=== PATIENT | female | born 2000 | race Hispanic/Latino ===

== ENCOUNTER 2024-01-04 08:27 | Emergency (ER) | payer BC ==
[~2024-01-04] VITALS: Ht 152.4 cm; Wt 48.6 kg
[2024-01-04 08:59] LABS: RAPID GROUP A STREP negative (NEGATIVE)
[2024-01-04 09:02] LABS: SARS-CoV-2, RNA, NAAT NEGATIVE SARS CoV-2 (NEGATIVE)
[2024-01-04 09:09] LABS: INFLUENZA TYPE A Negative For Type A (NEGATIVE); INFLUENZA TYPE B Negative For Type B (NEGATIVE)
[2024-01-04] MEDS: ACETAMINOPHEN 500 MG TABLET PO ONE (10:18)
[2024-01-04 10:43] LABS: APPEARANCE,URINE CLEAR (CLEAR); BILIRUBIN,URINE NEGATIVE (NEGATIVE); COLOR,URINE YELLOW (YELLOW); GLUCOSE, URINE (UA) 30 mg/dL (NEGATIVE); KETONES,URINE 150 mg/dL (NEGATIVE); LEUKOCYTE ESTERASE ,URINE NEGATIVE Leu/uL (NEGATIVE); NITRATE,URINE NEGATIVE (NEGATIVE); OCCULT BLOOD,URINE LARGE (NEGATIVE); PH,URINE 7.5 (5.0-8.0); PROTEIN,URINE 30 mg/dL (NEGATIVE); UROBILINOGEN,URINE 0.2 mg/dL (0.2-1.0)
[2024-01-04 10:44] LABS: HCG,QUALITATIVE URINE NEGATIVE (NEGATIVE)
[2024-01-04 10:45] LABS: ADD UA MICROSCOPIC YES
[2024-01-04 10:47] LABS: BACTERIA,URINE FEW /HPF (None Seen); MUCUS,URINE FEW LPF (None Seen); SQUAMOUS EPITHELIAL CELL,UR FEW /HPF (0-2)
[2024-01-04] MEDS: DiphenhydrAMINE HCL 50 MG/ML VIAL IM ONE (10:54)
[2024-01-04] MEDS: SOLU-MEDROL 125MG VIAL IM ONE (10:54)
[2024-01-04] MEDS: FAMOTIDINE 20MG TAB PO ONE (10:54)
[2024-01-04] MEDS ORDERED: METH4TAB15 PO (11:31)
[2024-01-04 11:43] VITALS: TEMP 98.9
[2024-01-04 11:44] VITALS: BP 118/76; PULSE 100; RESP 16; O2SAT 100
[2024-01-05] MEDS ORDERED: DOXY100T21 PO (20:57)
== END 2024-01-04 11:47 | disposition home or self-care (01) ==
LOC: EDH 08:27
DX: T78.49XA Other allergy, initial encounter (principal); B34.9 Viral infection, unspecified; Z20.822 Contact with and (suspected) exposure to COVID-19; X58.XXXA Exposure to other specified factors, initial encounter
CPT/HCPCS: 99284; 87635; 87880; 87804 ×2; 81001; 81025; 96372 ×2; J1200; J2919

== ENCOUNTER 2024-01-05 16:24 | Emergency (ER) | payer BC ==
[~2024-01-05] VITALS: Ht 152.4 cm; Wt 47.6 kg
[~2024-01-05 16:24] MED LIST: METH4TAB15 PO
[2024-01-05 17:16] LABS: BASOPHILS # (AUTO) 0.02 K/uL (0.00-0.20); BASOPHILS % (AUTO) 0.3 % (0.0-5.0); EOSINOPHILS # (AUTO) 0.19 K/uL (0.00-0.70); EOSINOPHILS % (AUTO) 2.6 % (0.0-8.0); HEMATOCRIT 37.5 % (36-48); IMMATURE GRANULOCYTE ABSOLUTE 0.03 K/uL (0-1); LYMPHOCYTES # (AUTO) 0.7 K/uL (1.0-4.8); MEAN CORPUSCULAR HEMOGLOBIN 29.6 pg (27.0-33.0); MEAN CORPUSCULAR HGB CONC 34.9 g/dL (32.0-36.0); MEAN CORPUSCULAR VOLUME 84.7 fL (79-99); MONOCYTES # (AUTO) 0.6 K/uL (0.1-1.0); MONOCYTES % (AUTO) 8.1 % (3.0-13.0); NEUTROPHILS # (AUTO) 5.9 K/uL (1.8-7.7); NEUTROPHILS % (AUTO) 78.6 % (40.0-77.0); PLATELET COUNT (AUTO) 140 K/uL (130-400); RED BLOOD CELL COUNT(AUTO) 4.43 MIL/uL (4.00-5.50); RED CELL DISTRIBUTION WIDTH 12.7 % (11.0-15.5); WHITE BLOOD COUNT (AUTO) 7.4 K/uL (4.8-10.8)
[2024-01-05 17:22] LABS: CREATININE 0.7 mg/dL (0.5-1.0); POTASSIUM 3.7 mmol/L (3.5-5.1)
[2024-01-05 17:26] LABS: BILIRUBIN,TOTAL 0.3 mg/dL (0.2-1.0); TOTAL PROTEIN, SERUM 7.7 g/dL (6.0-8.3)
[2024-01-05 19:32] VITALS: BP 118/60; PULSE 92; RESP 17; O2SAT 99
[2024-01-05 19:39] LABS: ADD UA MICROSCOPIC YES; APPEARANCE,URINE CLEAR (CLEAR); BILIRUBIN,URINE NEGATIVE (NEGATIVE); COLOR,URINE YELLOW (YELLOW); GLUCOSE, URINE (UA) NEGATIVE (NEGATIVE); KETONES,URINE 10 mg/dL (NEGATIVE); LEUKOCYTE ESTERASE ,URINE NEGATIVE Leu/uL (NEGATIVE); NITRATE,URINE NEGATIVE (NEGATIVE); OCCULT BLOOD,URINE LARGE (NEGATIVE); PH,URINE 6.5 (5.0-8.0); PROTEIN,URINE 20 mg/dL (NEGATIVE); UROBILINOGEN,URINE 0.2 mg/dL (0.2-1.0)
[2024-01-05 19:41] LABS: BACTERIA,URINE RARE /HPF (None Seen); MUCUS,URINE RARE LPF (None Seen); SQUAMOUS EPITHELIAL CELL,UR RARE /HPF (0-2)
[2024-01-05] MEDS ORDERED: DOXY100T21 PO (20:57)
== END 2024-01-05 21:26 | disposition home or self-care (01) ==
LOC: EDH 16:24
DX: R21 Rash and other nonspecific skin eruption (principal)
CPT/HCPCS: 36415; 80053; 81001; 84145; 85025; 86000